=== PATIENT | female | born 1995 | race Caucasian/White ===

== ENCOUNTER 2024-06-16 17:50 | Emergency (ER) | payer OTHER ==
[~2024-06-16] VITALS: Ht 162.6 cm; Wt 73.8 kg
[2024-06-16 17:57] VITALS: BP 128/79; PULSE 71; RESP 16; O2SAT 98
[2024-06-16] MEDS ORDERED: AMOX-580 PO (19:01)
[2024-06-16 19:20] VITALS: TEMP 98.2
== END 2024-06-16 19:16 | disposition home or self-care (01) ==
LOC: ER 17:51
DX: K04.7 Periapical abscess without sinus (principal); K00.6 Disturbances in tooth eruption; Z88.5 Allergy status to narcotic agent
CPT/HCPCS: 99283

== ENCOUNTER 2024-11-14 19:04 | Emergency (ER) | payer MEDICAID ==
[~2024-11-14] VITALS: Ht 162.6 cm; Wt 65.2 kg
[2024-11-14 19:38] VITALS: BP 118/81; PULSE 83; TEMP 98.4; O2SAT 100
[2024-11-14] MEDS ORDERED: AMOX500C2 PO (21:15)
[2024-11-14] MEDS ORDERED: IBUP-1986 PO (21:15)
--- NOTE | 2024-11-14 21:17 | Physician Documentation ---
HPI ~ General Chief Complaint: Tooth Problem Stated Complaint: TOOTH PAIN Time Seen by MD: 21:03 History of Present Illness HPI Comment This is a 29-year-old female who presents with several days of worsening left lower molar pain, patient reports history of damage to the molar in his awaiting a dentist appointment next week to have this addressed. Patient reports no fever, chills, difficulty swallowing, or facial pain. Patient reports no other acute symptoms or concerns. Medication Reconciliation Allergies: Coded Allergies: morphine (Unverified Allergy, Mild, rash, 06/16/24) Scheduled Amoxicillin Trihydrate* (Amoxicillin*), 1 CAP PO Q8H Ibuprofen (Ibuprofen), 1 TAB PO Q8H Review of Systems ROS Left lower tooth pain as stated above in the HPI, otherwise all systems are reviewed and negative. Physical Exam Vital Signs: Temperature: 98.4, Source: Temporal, Heart Rate: 83, Respiratory Rate: 18, BP: 118/81, Pulse Oximetry: 100, Weight: 65.200 Oxygen Flow Rate: 0 Physical Exam VITALS: Reviewed and as above. GENERAL: Alert, nontoxic appearing, no apparent distress. HEENT: Severely decayed left lower 2nd molar, no erythema, no swelling, no purulent discharge, no fluctuance, no facial swelling, no submandibular swelling, no drooling, uvula midline RESPIRATORY: No increased work of breathing, no respiratory distress, speaking in full clear sentences Progress Results/Orders Results/Orders Completed Orders - FREDY SARMIENTO [employer] Ketorolac Trometh 15mg/Ml Vial (Toradol (11/14/24 21:20) Acetaminophen 325mg Tablet (Tylenol Tabl (11/14/24 21:20) Amoxicillin Capsule (Trimox Capsule) (11/14/24 21:20) Medications Received in ER Medications (Trade) Dose Ordered Sig/Jacob Route PRN Reason Start Time Stop Time Status Last Admin Dose Admin (Toradol injection) 15 mg ONCE ONCE IM 11/14/24 21:20 11/14/24 21:24 DC 11/14/24 21:44 15 MG (Tylenol tablet) 975 mg ONCE ONCE PO 11/14/24 21:20 11/14/24 21:21 DC 11/14/24 21:43 975 MG (Trimox capsule) 500 mg ONCE ONCE PO 11/14/24 21:20 11/14/24 21:21 DC 11/14/24 21:43 500 MG Vital Signs 11/14/24 11/14/24 19:38 21:44 Temp 98.4 Pulse 83 Resp 18 17 B/P (MAP) 118/81 Pulse Ox 100 O2 Flow Rate 0 Medical Decision Making Findings This well appearing 29-year-old female presented with dental pain to the left lower 2nd molar without surrounding erythema, fluctuance, or facial swelling. Based on history and physical exam I have low clinical suspicion for peritonsillar abscess, uvulitis, deep tissue space infection of the head/neck, or impending airway compromise. There was no submandibular swelling or elevation of the tongue, the uvula was midline, patient is able to swallow fluids and secretion without difficulty, there is no increased work of breathing or noisy breathing. Based on presentation I am concerned for odontogenic infection and antibiotic treatment with amoxicillin is indicated. Patient medicated for pain in department. Reassuring patient has dental follow up within the next week. Patient provided return to care precautions which she verbalized understanding of. Differential Dx:Considerations: Include: Alveolar fracture, Alveolar osteitis, ANUG, Facial Cellulitis, Periapical abscess, Peridontal abscess, Pulpitis, Tooth avulsion, Tooth eruption, Tooth Fracture, Trigeminal neuralgia, Other (Referred TMJ pain, See's angina, peritonsillar abscess, peritonsillar cellulitis) Departure Disposition: 01 HOME / SELF CARE / HOMELESS Impression: Primary Impression: Toothache Condition: Improved Discharge Instructions: Dental Pain Additional Instructions: Please take the prescribed antibiotics until all gone. Please use the prescribed ibuprofen as needed for pain as directed. You may add up to 1000 mg of Tylenol 4 times a day for breakthrough dental pain. Please follow up with your dentist as scheduled. Please also follow up with your primary care provider in the next few days. Please return to the emergency department for any new or worsening concerning symptoms including for fever, facial swelling, or difficulty swallowing or breathing. Take ibuprofen with food to avoid stomach upset, do not take ibuprofen for the next 12 hours as you received a Toradol injection today which replaces ibuprofen. Referrals: NO PRIMARY CARE PROVIDER (PCP) Prescriptions Amoxicillin Trihydrate* (Amoxicillin*) 500 Mg Capsule 1 CAP PO Q8H for 7 Days, #21 CAP Prov: FREDY SARMIENTO [employer] 11/14/24 Ibuprofen (Ibuprofen) 800 Mg Tablet 1 TAB PO Q8H for pain for 10 Days, #30 TAB 0 Refills Prov: FREDY SARMIENTO 11/14/24 Education Educated: Patient Educated regarding: diagnosis, treatment, prognosis, need for follow up Signature Scribe Signature: No scribe Attestation: The note accurately reflects work and decisions made by me.MIKIE Dockery 11/15/24 02:13 FREDY SARMIENTOP Nov 14, 2024 21:17
[2024-11-14] MEDS: amoxicillin 250mg capsule PO ONE (21:43)
[2024-11-14] MEDS: acetaminophen 325mg tablet PO ONE (21:43)
[2024-11-14 21:44] VITALS: RESP 17
[2024-11-14] MEDS: ketorolac trometh 15mg/ml vial 15 MG/ML ML IM ONE (21:44)
== END 2024-11-14 21:50 | disposition home or self-care (01) ==
LOC: ER 19:04
DX: K08.89 Other specified disorders of teeth and supporting structures (principal); Z88.5 Allergy status to narcotic agent
CPT/HCPCS: 96372; 99283; J1885

== ENCOUNTER 2025-03-07 18:11 | Emergency (ER) | payer MEDICAID ==
[~2025-03-07] VITALS: Ht 162.6 cm; Wt 83.6 kg
[~2025-03-07 18:11] MED LIST: IBUP-1986 PO
[2025-03-07 18:16] VITALS: BP 117/78; PULSE 88; RESP 18; O2SAT 98
[2025-03-07 18:51] LABS: MEAN PLATELET VOLUME 7.7 FL (7.4-10.4); RED CELL DISTRIBUTION WIDTH 12.0 % (11.5-14.5)
[2025-03-07 18:54] LABS: LEUKOCYTE ESTERASE ,URINE NEGATIVE (Neg); NITRITES, URINE NEGATIVE (Neg); OCCULT BLOOD,URINE NEGATIVE (Neg)
[2025-03-07 18:59] LABS: UA COLLECTION TYPE NON-SPECIFIED
[2025-03-07 19:12] LABS: CREATININE 0.92 MG/DL (0.40-0.90); TOTAL CARBON DIOXIDE 30.5 MMOL/L (24-32); eCRCL 78 ML/MIN; eGFR 72 ML/MIN
[2025-03-07 19:32] LABS: HCG SERUM QL NEGATIVE
[2025-03-07] MEDS ORDERED: OMEP40CA21 PO (21:23)
--- NOTE | 2025-03-07 21:24 | Physician Documentation ---
History of Present Illness Chief Complaint: Abdominal Pain Stated Complaint: ABD PAIN Time Seen by MD: 20:56 Mode of Arrival: POV HPI 29-year-old female presents to the emergency department for evaluation of epigastric pain. Pain began this morning associated with nausea without vomiting. Does not appear to be associated postprandial. Patient has been follow up by GI. Patient has said the past medical history of peptic ulcer disease and has had repeated EGDs. Has not been on a PPI or H2 [place] for some time. Pain is localized to the epigastrium and it is nonradiating. There has been no change in bowel color, hemoptysis or melena reported stool. He denies alcohol use or NSAID use. Medication Reconciliation Allergies: Coded Allergies: morphine (Unverified Allergy, Mild, rash, 03/07/25) Scheduled Ibuprofen (Ibuprofen), 1 TAB PO Q8H Omeprazole (Prilosec), 1 CAP PO DAILY Review of Systems All Other Systems at this time: Reviewed and Negative Gastrointestinal: Reports: see HPI Physical Exam Vital Signs: Temperature: 97.6, Source: Temporal, Heart Rate: 88, Respiratory Rate: 18, BP: 117/78, Pulse Oximetry: 98, Weight: 83.640 General Appearance: alert, WD/WN, mild distress EENT: PERRL/EOMI Neck: normal inspection Respiratory: lungs clear Cardiovascular: normal peripheral pulses Gastrointestinal: other (Epigastric discomfort negative Curtis's sign); No: liver enlargement, spleen enlargement, rebound, guarding Extremities: non-tender Neurologic: oriented x4 Skin: normal color Lymphatic: no adenopathy Progress Results/Orders Results/Orders Completed Orders - ALIE GARCIA PAC Mag & Alum Hydrox/Simeth Susp (Maalox Or (03/07/25 21:15) Lidocaine 2% Viscous (Xylocaine 2% Visco (03/07/25 21:20) Vital Signs 03/07/25 18:16 Temp 97.6 Pulse 88 Resp 18 B/P (MAP) 117/78 Pulse Ox 98 Laboratory Tests Test 03/07/25 18:29 03/07/25 18:32 Urine Specimen Description Non-specified Urine Color Yellow Urine Clarity Clear Urine pH 5.5 Urine Specific [place] 1.025 Urine Protein Negative Urine Glucose (UA) Negative Urine Ketones Trace H Urine Occult Blood Negative Urine Nitrite Negative Urine Bilirubin Negative Urine Urobilinogen 0.2 Urine Leukocyte Esterase Negative Urine Culture Indicated Not ind Volume Urine Centrifuged 10 ml Urine Comment White Blood Count 6.7 Red Blood Count 4.39 Hemoglobin 14.1 Hematocrit 41.3 Mean Corpuscular Volume 93.9 Mean Corpuscular Hemoglobin 32.1 H Mean Corpuscular Hemoglobin Concent 34.2 Red Cell Distribution Width 12.0 Platelet Count 342 Mean Platelet Volume 7.7 Neutrophils (%) (Auto) 66.9 Lymphocytes (%) (Auto) 22.8 Monocytes (%) (Auto) 6.2 Eosinophils (%) (Auto) 3.4 Basophils (%) (Auto) 0.7 Neutrophils # (Auto) 4.5 Lymphocytes # (Auto) 1.5 Monocytes # (Auto) 0.4 Eosinophils # (Auto) 0.2 Basophils # (Auto) 0.0 CBC Comment Sodium Level 140 Potassium Level 3.9 Chloride Level 105 Carbon Dioxide Level 30.5 Anion Gap 5 L Blood Urea Nitrogen 14 Creatinine 0.92 H Estimated GFR/1.73 m2 72 BUN/Creatinine Ratio 15.2 Glucose Level 95 Calcium Level 9.3 Total Bilirubin 0.6 Aspartate Amino Transf (AST/SGOT) 19 Alanine Aminotransferase (ALT/SGPT) 34 Alkaline Phosphatase 85 Total Protein 8.5 H Albumin 3.6 Globulin 4.9 H Albumin/Globulin Ratio 0.7 L Amylase Level 45 Lipase 31 Human Chorionic Gonadotropin, Qual Negative Chemistry Comments Medical Decision Making Differential Dx:Considerations: Include: Cholangitis, Cholelithasis, Gastritis/PUD, Gastroenteritis, GI hemorrhage, Pancreatitis Additional Comments 29-year-old female being followed by GI with known history of peptic ulcer disease and suspected cholelithiasis. Presents to the emergency department tonight for evaluation. Labs are reassuring for no transaminitis or elevated alk-phos. No Curtis's sign at this time requiring ultrasound imaging the patient has scheduled GI follow up coming up. Suspect epigastric discomfort is secondary to gastritis and we will provide GI cocktail in the emergency department and begin patient again at [facility]. She has reliable follow up and was discharged safely from the emergency department without suspected upper or lower GI bleed. Departure Disposition: HOME / SELF CARE / HOMELESS Impression: Primary Impression: Acute gastritis Qualified Codes: K29.00 - Acute gastritis without bleeding Condition: Stable Discharge Instructions: Gastritis, Adult Additional Instructions: Tonight in the emergency department your labs are reassuring. Please continue to follow up with your GI doctor for consideration of ultrasound imaging. You received a GI cocktail in the emergency department and a prescription to begin Prilosec. Thank you for visiting [facility] please return as needed. Referrals: NO PRIMARY CARE PROVIDER (PCP) Prescriptions Omeprazole (Prilosec) 40 Mg Capsule 1 CAP PO DAILY for 30 Days, #30 CAP Prov: ALIE GARCIA PAC 03/07/25 Education Educated: Patient Educated regarding: diagnosis, treatment Signature Scribe Signature: . Attestation: . ALIE GARCIA PAC Mar 07, 2025 21:24
[2025-03-07] MEDS: mag hydrox/Alum hydrox/simeth 30ml oral suspension PO ONE (21:55)
[2025-03-07] MEDS: LIDOcaine 2% Viscous 15ml cup MM ONE (21:55)
[2025-03-07 22:07] VITALS: TEMP 97.6
== END 2025-03-07 22:10 | disposition home or self-care (01) ==
LOC: ER 18:11
DX: K29.00 Acute gastritis without bleeding (principal); Z88.5 Allergy status to narcotic agent; Z87.11 Personal history of peptic ulcer disease; Z79.899 Other long term (current) drug therapy
CPT/HCPCS: 36415; 80053; 81003; 82150; 83690; 84703; 85025; 99283